=== PATIENT | male | born 1980 | race Caucasian/White ===

== ENCOUNTER 2024-03-06 15:05 | Emergency (ER) | payer OTHER ==
[2024-03-06 15:59] VITALS: BP 156/90; PULSE 78; RESP 18; TEMP 98.3; BMI 25.0
[2024-03-06 17:02] LABS: BASO % 0.4 % (0-2.0); EOS % 0.1 % (0-4.5); HEMATOCRIT 41.7 % (35.4-49); HEMOGLOBIN 14.3 GM/dL (11.7-16.9); LYMPH % 8.6 % (8-40); MCH 29.6 pg (25.7-33.7); MCHC 34.2 g/dl (32.0-35.9); MEAN CELL VOLUME 86.6 fl (80-96); MEAN PLT VOLUME 8.3 fl (7.5-11.1); MONO % 7.6 % (3.8-10.2); NEUT % 83.3 % (42.8-82.8); PLATELET COUNT 258 10^3/uL (134-434); RBC 4.82 M/mm3 (4.00-5.60); RDW 13.9 % (11.9-15.9); WHITE BLOOD COUNT 14.2 K/mm3 (4.0-10.0)
[2024-03-06] MEDS: SODIUM CHLORIDE 0.9% 500 ML INFUS.BAG IV ONE (17:10)
[2024-03-06 17:21] LABS: EPI CELLS 3 /uL (0-25.1); HYALINE CASTS 0 /uL (0-3.1); URINE APPEARANCE CLEAR; URINE BACTERIA 1 /uL (0-1359); URINE BILIRUBIN NEGATIVE (NEGATIVE); URINE COLOR YELLOW; URINE GLUCOSE (UA) NEGATIVE (NEGATIVE); URINE KETONE 2+ (NEGATIVE); URINE LEUK ESTERASE NEGATIVE (NEGATIVE); URINE NITRITE NEGATIVE (NEGATIVE); URINE PROTEIN NEGATIVE (NEGATIVE); URINE RBC 40 /uL (0-23.9); URINE UROBILINOGEN 0.2 mg/dL (0.2-1.0); URINE WBC 14 /uL (0-25.8)
[2024-03-06 17:28] LABS: POTASSIUM 3.9 mmol/L (3.5-5.1)
[2024-03-06 17:30] LABS: CALCIUM 8.8 mg/dL (8.5-10.1)
[2024-03-06 17:31] LABS: ALBUMIN 4.2 g/dl (3.4-5.0); BLOOD UREA NITROGEN 12.5 mg/dL (7-18)
[2024-03-06 17:36] LABS: TOT PROT 7.1 g/dl (6.4-8.2)
[2024-03-06] MEDS ORDERED: KETOROLAC TROMETHAMINE 30 MG/1 ML VIAL ONE (17:46)
[2024-03-06] MEDS: KETOROLAC TROMETHAMINE 30 MG/1 ML VIAL IVPUSH ONE (17:59)
[2024-03-06] MEDS ORDERED: CEFTRIAXONE 1 GM/50 ML BAG ONE (21:20)
[2024-03-06] MEDS: CEFTRIAXONE 1,000 MG in DEXTROSE 5%-WATER - 50 ML IVPB ONE (21:30)
== END 2024-03-06 21:55 | disposition home or self-care (01) ==
LOC: JER 15:05
PROC: 3E03329 Introduction of Other Anti-infective into Peripheral Vein, Percutaneous Approach (ICD-10-PCS; principal; 2024-03-06)
PROC: 3E0333Z Introduction of Anti-inflammatory into Peripheral Vein, Percutaneous Approach (ICD-10-PCS; 2024-03-06)
DX: N13.2 Hydronephrosis with renal and ureteral calculous obstruction (principal); R10.12 Left upper quadrant pain
CPT/HCPCS: 36415; 74176-TC; 80053; 81003; 85025; 87086; 99284-25